=== PATIENT | male | born 1980 | race Caucasian/White ===

== ENCOUNTER 2021-12-28 16:31 | Emergency (ER) | payer OTHER ==
[~2021-12-28] VITALS: Ht 188 cm; Wt 73.0 kg
[2021-12-28] MEDS ORDERED: PRED5DRO25 OD (16:51)
[2021-12-28] MEDS ORDERED: IBUP-2070 PO (16:51)
[2021-12-28] MEDS ORDERED: SULF-261 PO (16:51)
[2021-12-28 19:33] LABS: EOSINOPHILS % (AUTO) 0.3 % (1.0-6.0); HEMATOCRIT 43.6 % (41-53); HEMOGLOBIN 15.4 g/dL (13.5-17.5); LYMPHOCYTES # (AUTO) 1.4 K/uL (1.0-4.8); LYMPHOCYTES % (AUTO) 18.8 % (22.0-44.0); MEAN CORPUSCULAR HEMOGLOBIN 28.8 pg (26.0-34.0); MEAN CORPUSCULAR HGB CONC 35.3 G/dL (31.0-37.0); MEAN CORPUSCULAR VOLUME 82 fL (80-100); MONOCYTES # (AUTO) 0.7 K/uL (0.1-1.0); MONOCYTES % (AUTO) 9.6 % (2.0-9.0); NEUTROPHILS # (AUTO) 5.3 K/uL (1.8-7.7); NEUTROPHILS % (AUTO) 70.3 % (40.0-70.0); PLATELET COUNT (AUTO) 220 K/uL (150-450); RED BLOOD CELL COUNT(AUTO) 5.33 MIL/uL (4.50-5.90); RED CELL DISTRIBUTION WIDTH 12.5 % (11.5-14.5)
[2021-12-28 19:55] LABS: ANION GAP 6 mmol/L (8-16); CALCIUM, TOTAL 8.8 mg/dL (8.8-10.5); CARBON DIOXIDE 28 mmol/L (22-29); CHLORIDE 101 mmol/L (98-107); CREATININE 1.24 mg/dL (0.60-1.30); GLUCOSE,RANDOM 85 mg/dL (70-110); SODIUM SERUM 135 mmol/L (136-145); UREA NITROGEN, BLOOD 15 mg/dL (7-18)
[2021-12-28 19:56] LABS: GLOMERULAR FILTR. RATE CALC > 60 mL/min (>60)
[2021-12-28 20:05] LABS: ALANINE AMINOTRANSFERASE 26 U/L (12-78); ALBUMIN 4.3 g/dL (3.4-5.0); ALKALINE PHOSPHATASE 98 U/L (46-116); ASPARTATE AMINOTRANSFERASE 19 U/L (15-37); BILIRUBIN,TOTAL 0.4 mg/dL (0.1-1.0); TOTAL PROTEIN, SERUM 7.5 g/dL (6.4-8.2)
[2021-12-28] MEDS ORDERED: SODIUM CHLORIDE 0.9% 100 ML ONE (22:00)
[2021-12-28] MEDS ORDERED: IOHEXOL 350 MG/ML 100 ML VIAL ONE (22:00)
[2021-12-28 22:44] VITALS: BP 113/69
== END 2021-12-28 23:52 | disposition home or self-care (01) ==
LOC: EMS 16:34
DX: R51.9 Headache, unspecified (principal); Z86.19 Personal history of other infectious and parasitic diseases
CPT/HCPCS: 99285; 70460; 80053; 85025; 36415; Q9967; J7050